=== PATIENT | female | born 1945 | race Caucasian/White ===

== ENCOUNTER → 2019-03-31 | Outpatient (REF) | payer MEDICARE ==
[2019-03-31 16:54] LABS: HEMOGLOBIN 13.9 g/dl (12.0-15.5); MEAN CORPUSCULAR HEMOGLOBIN 31.3 pg (27.0-33.0); MEAN CORPUSCULAR HGB CONC 32.3 g/dl (32.0-36.5); MEAN CORPUSCULAR VOLUME 96.8 fl (80.0-96.0); PLATELET COUNT, AUTOMATED 236 10^3/uL (150-450); RED BLOOD COUNT 4.44 10^6/uL (4.00-5.40); WHITE BLOOD COUNT 6.2 10^3/uL (4.0-10.0)
[2019-03-31 16:58] LABS: BLOOD UREA NITROGEN 14 MG/DL (7-18); CARBON DIOXIDE LEVEL 30 MEQ/L (21-32); CHLORIDE LEVEL 104 MEQ/L (98-107); CREATININE FOR GFR 0.68 MG/DL (0.55-1.30); GLOMERULAR FILTRATION RATE > 60.0 (>39); GLUCOSE, FASTING 113 MG/DL (70-100); POTASSIUM SERUM 4.7 MEQ/L (3.5-5.1); SODIUM LEVEL 140 MEQ/L (136-145)
== END ==
LOC: M SFHCCLAY 09:29
PROVIDERS: ATTEND Family Medicine
DX: E11.65 Type 2 diabetes mellitus with hyperglycemia (principal)

== ENCOUNTER → 2019-04-06 | Outpatient (REF) | payer MEDICARE | LOC: M LAB REF 13:20 | PROVIDERS: ATTEND Podiatrist Foot & Ankle Surgery | DX: L98.9 Disorder of the skin and subcutaneous tissue, unspecified (principal) ==

== ENCOUNTER → 2020-02-08 | Outpatient (REF) | payer MEDICARE, BC ==
[2020-02-08 13:14] LABS: ALT/SGPT 22 U/L (12-78); BILIRUBIN,TOTAL 0.7 MG/DL (0.2-1.0); BLOOD UREA NITROGEN 19 MG/DL (7-18); CARBON DIOXIDE LEVEL 28 MEQ/L (21-32); CHLORIDE LEVEL 103 MEQ/L (98-107); CHOLESTEROL LEVEL 180 MG/DL (<200); GLOMERULAR FILTRATION RATE > 60.0 (>39); GLUCOSE, FASTING 121 MG/DL (70-100); HDL CHOLESTEROL 48 MG/DL (>40); LDL CHOLESTEROL 104 MG/DL (<100); NON-HDL-C 132 MG/DL; POTASSIUM SERUM 4.3 MEQ/L (3.5-5.1); SODIUM LEVEL 139 MEQ/L (136-145); TOTAL PROTEIN 6.7 GM/DL (6.4-8.2); TRIGLYCERIDES LEVEL 138 MG/DL (<150)
[2020-02-08 14:12] LABS: HEMOGLOBIN A1c 6.7 %
== END ==
LOC: M SFHCCLAY 07:53
PROVIDERS: ATTEND Nurse Practitioner Family
DX: E11.65 Type 2 diabetes mellitus with hyperglycemia (principal)

== ENCOUNTER 2020-03-29 10:25 | Observation (INO) | payer MEDICARE, BC ==
[~2020-03-29] VITALS: Ht 157.5 cm; Wt 61.3 kg
--- NOTE | 2020-03-29 11:20 | REPVR ---
PROCEDURE INFORMATION: Exam: XR Chest, 1 View Exam date and time: 03/29/2020 10:56 AM Age: 74 years old Clinical indication: Other: Weakness; Additional info: Chest pain TECHNIQUE: Imaging protocol: XR of the chest Views: 1 view. COMPARISON: CR RIBS BILAT W/O PA CHEST 03/06/2016 3:31 PM FINDINGS: Lungs: Unremarkable. No consolidation. Pleural space: Unremarkable. No pleural effusion. No pneumothorax. Heart/Mediastinum: Unremarkable. No cardiomegaly. Bones/joints: Unremarkable. IMPRESSION: No acute findings. Electronically signed by: Earl Parsons On 03/29/2020 11:20:10 AM
[2020-03-29 11:47] LABS: BASO % 0.4 % (0.0-1.0); EOS % 0.1 % (0.0-3.0); HEMOGLOBIN 13.4 g/dl (12.0-15.5); LYMPH % 11.6 % (24.0-44.0); MEAN CORPUSCULAR HEMOGLOBIN 31.2 pg (27.0-33.0); MEAN CORPUSCULAR HGB CONC 32.7 g/dl (32.0-36.5); MEAN CORPUSCULAR VOLUME 95.3 fl (80.0-96.0); MONO # 0.4 10^3/uL (0.0-0.8); MONO % 4.5 % (0.0-5.0); NEUTROPHILS # 6.8 10^3/uL (1.5-8.5); NEUTROPHILS % 83.2 % (36.0-66.0); PLATELET COUNT, AUTOMATED 202 10^3/uL (150-450); WHITE BLOOD COUNT 8.2 10^3/uL (4.0-10.0)
[2020-03-29 11:57] LABS: INR 0.98; PROTHROMBIN TIME 13.2 SECONDS (11.8-14.0)
[2020-03-29 12:19] LABS: ALBUMIN 3.9 GM/DL (3.2-5.2); ALT/SGPT 27 U/L (12-78); BILIRUBIN,DIRECT < 0.1 MG/DL (0.0-0.2); BILIRUBIN,TOTAL 0.5 MG/DL (0.2-1.0); BLOOD UREA NITROGEN 16 MG/DL (7-18); CALCIUM LEVEL 9.2 MG/DL (8.8-10.2); CARBON DIOXIDE LEVEL 23 MEQ/L (21-32); CHLORIDE LEVEL 108 MEQ/L (98-107); CK-MB VALUE MASS 1.3 NG/ML (<3.6); CPK CREATINE PHOSPHOKINASE 89 U/L (26-192); CREATININE FOR GFR 0.94 MG/DL (0.55-1.30); GLOMERULAR FILTRATION RATE > 60.0 (>39); GLUCOSE, FASTING 162 MG/DL (70-100); LIPASE 51 U/L (73-393); MB/CK RELATIVE INDEX 1.46 (< OR =4); POTASSIUM SERUM 4.6 MEQ/L (3.5-5.1); SODIUM LEVEL 138 MEQ/L (136-145); TOTAL PROTEIN 7.5 GM/DL (6.4-8.2); TROPONIN I < 0.02 NG/ML (< 0.10)
[2020-03-29] MEDS ORDERED: NS 500 ML IV ONE (12:30)
--- NOTE | 2020-03-29 12:51 | REPVR ---
PROCEDURE INFORMATION: Exam: CT Head Without Contrast Exam date and time: 03/29/2020 12:34 PM Age: 74 years old Clinical indication: Pain; Headache; Additional info: Weakness resolved TECHNIQUE: Imaging protocol: Computed tomography of the head without contrast. Radiation optimization: All CT scans at this facility use at least one of these dose optimization techniques: automated exposure control; mA and/or kV adjustment per patient size (includes targeted exams where dose is matched to clinical indication); or iterative reconstruction. COMPARISON: No relevant prior studies available. FINDINGS: Brain: Normal. No hemorrhage. Unremarkable white matter. No mass effect. Ventricles: Normal. No ventriculomegaly. Bones/joints: Unremarkable. No acute fracture. Sinuses: Visualized sinuses are unremarkable. No fluid levels. Mastoid air cells: Visualized mastoid air cells are well aerated. Soft tissues: Unremarkable. IMPRESSION: No acute intracranial abnormality. Electronically signed by: Earl Parsons On 03/29/2020 12:51:39 PM
[2020-03-29] MEDS ORDERED: METF500T13 PO (12:52)
[2020-03-29] MEDS ORDERED: PROL60SO SC (12:52)
[2020-03-29] MEDS ORDERED: LOSA25TA14 PO (12:52)
[2020-03-29] MEDS ORDERED: ROSU40TA4 PO (12:52)
[2020-03-29] MEDS ORDERED: VITA1CHW7 PO (12:54)
[2020-03-29] MEDS ORDERED: HM C500T3 PO (12:54)
[2020-03-29 13:11] LABS: FREE T4 1.03 NG/DL (0.76-1.46); MAGNESIUM LEVEL 1.6 MG/DL (1.8-2.4); PHOSPHORUS LEVEL 2.2 MG/DL (2.5-4.9)
[2020-03-29] MEDS ORDERED: NEUTRA-PHOS 1.5 GM PACKET PO ONE (14:00)
[2020-03-29] MEDS ORDERED: MAGNESIUM OXIDE 400 MG TAB (MAG-OX) PO ONE (14:00)
[2020-03-29] MEDS ORDERED: NITROGLYCERIN 0.4 MG SUBL TABLET SL PRN (14:15)
[2020-03-29] MEDS ORDERED: DENOSUMAB 60MG/1ML SYRINGE (PROLIA) (J0897 PER 1MG) SC SCH (14:15)
--- NOTE | 2020-03-29 15:48 | REPVR ---
PROCEDURE INFORMATION: Exam: MR Head Without Contrast Exam date and time: 03/29/2020 3:12 PM Age: 74 years old Clinical indication: Weakness, extremity; Bilateral; Additional info: Weakness resolved TECHNIQUE: Imaging protocol: MR of the head without contrast. COMPARISON: CT Head without contrast 03/29/2020 12:19 PM FINDINGS: Brain: Moderate central and cortical atrophy and mild to moderate small vessel ischemic disease is noted. There is no intracranial hemorrhage. There is no abnormal intracranial mass. Diffusion-weighted imaging demonstrates no evidence of abnormal signal to suggest an acute ischemic event. Ventricles: Normal. No ventriculomegaly. Bones/joints: Unremarkable. Sinuses: Normal as visualized. No acute sinusitis. Mastoid air cells: Normal as visualized. No mastoid effusion. Orbits: Unremarkable. Soft tissues: Unremarkable. IMPRESSION: Age-related changes. No acute CVA. Electronically signed by: Earl Parsons On 03/29/2020 15:47:49 PM
--- NOTE | 2020-03-29 15:50 | REPVR ---
PROCEDURE INFORMATION: Exam: MR Angiogram Head Without Contrast, Arteries Exam date and time: 03/29/2020 3:12 PM Age: 74 years old Clinical indication: Weakness; Additional info: Weakness resolved TECHNIQUE: Imaging protocol: MR angiogram head without contrast. Exam focused on the arteries. 3D rendering (Not supervised by radiologist): MIP and/or 3D reconstructed images were created by the technologist. COMPARISON: CT Head without contrast 03/29/2020 12:19 PM FINDINGS: ANTERIOR CIRCULATION: Right internal carotid artery: Intracranial segment is patent with no significant stenosis. No aneurysm. Right middle cerebral artery: No occlusion or significant stenosis. No aneurysm. Right anterior cerebral artery: No occlusion or significant stenosis. No aneurysm. Left internal carotid artery: Intracranial segment is patent with no significant stenosis. No aneurysm. Left middle cerebral artery: No occlusion or significant stenosis. No aneurysm. Left anterior cerebral artery: No occlusion or significant stenosis. No aneurysm. POSTERIOR CIRCULATION: Right vertebral artery: Distal right vertebral artery ends at the level of C1 in multiple small branches. Left vertebral artery: No occlusion or significant stenosis. No aneurysm. Basilar artery: No occlusion or significant stenosis. No aneurysm. Right posterior cerebral artery: No occlusion or significant stenosis. No aneurysm. Left posterior cerebral artery: No occlusion or significant stenosis. No aneurysm. IMPRESSION: The right distal vertebral artery ends in branches at the level of C1 however, basilar artery and left vertebral arteries appear unremarkable. There is no abnormality noted with anterior circulation. Electronically signed by: Earl Parsons On 03/29/2020 15:49:48 PM
[2020-03-29 17:28] VITALS: BP 154/82
[2020-03-29] MEDS: metFORMIN (GLUCOPHAGE) 500 MG TAB PO SCH (18:04)
[2020-03-29] MEDS ORDERED: LOSARTAN 25 MG TAB PO SCH (21:00)
[2020-03-29] MEDS ORDERED: ROSUVASTATIN 10 MG TAB (CRESTOR) PO SCH (21:00)
[2020-03-29 22:00] VITALS: BP 153/73
[2020-03-30 06:00] VITALS: BP 139/73
[2020-03-30 07:07] LABS: ALBUMIN 3.7 GM/DL (3.2-5.2); ALT/SGPT 23 U/L (12-78); BILIRUBIN,TOTAL 0.6 MG/DL (0.2-1.0); BLOOD UREA NITROGEN 15 MG/DL (7-18); CALCIUM LEVEL 8.4 MG/DL (8.8-10.2); CARBON DIOXIDE LEVEL 24 MEQ/L (21-32); CHLORIDE LEVEL 110 MEQ/L (98-107); CHOLESTEROL LEVEL 154 MG/DL (<200); CHOLESTEROL RISK RATIO 3.422 (<5); GLOMERULAR FILTRATION RATE > 60.0 (>39); GLUCOSE, FASTING 113 MG/DL (70-100); HDL CHOLESTEROL 45 MG/DL (>40); LDL CHOLESTEROL 92 MG/DL (<100); NON-HDL-C 109 MG/DL; POTASSIUM SERUM 4.1 MEQ/L (3.5-5.1); SODIUM LEVEL 141 MEQ/L (136-145); TOTAL PROTEIN 6.6 GM/DL (6.4-8.2); TRIGLYCERIDES LEVEL 87 MG/DL (<150)
[2020-03-30] MEDS: metFORMIN (GLUCOPHAGE) 500 MG TAB PO SCH (08:06)
[2020-03-30] MEDS ORDERED: ENOXAPARIN 40MG/0.4ML SYRINGE (J1650 PER 10MG) SC SCH (09:00)
[2020-03-30] MEDS ORDERED: ASPIRIN 81 MG CHEW TABLET PO SCH (09:00)
[2020-03-30] MEDS ORDERED: CARVedilol 3.125 MG TAB PO SCH (09:00)
[2020-03-30] MEDS ORDERED: ASPI81TA26 PO (10:59)
[2020-03-30] MEDS ORDERED: CVSTAB PO (11:05)
[2020-03-30] MEDS ORDERED: FLUBLOK(EGG FREE)(QUAD)INFLUENZA VACC 0.5ML SYRINGE 18YRS & OLDER IM ONE (11:15)
[2020-03-30] MEDS ORDERED: CARV3.12 PO (12:04)
[2020-03-30 12:27] VITALS: BP 139/73
--- NOTE | 2020-03-30 22:03 | HPEPDOC ---
[facility] Medical History & Physical Date of Admission Mar 29, 2020 Date of Service: Mar 29, 2020 History and Physical CHIEF COMPLAINT: HISTORY OF PRESENT ILLNESS: Patient is a 74-year-old female with past medical history of diabetes mellitus ([id number]) presented for concerns of diffuse weakness is noticed over the course of the month was more pronounced within the last week. 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 She reports alleviation of symptoms with rest. She also noted episodes of diaphoresis that developed in the same timeframe but does not occur in conju nction with exertion. She reported sweating episodes to be mostly when resting or sitting in her couch. Diaphoretic episodes also resolved within a few minutes. She denied taking any aspirin or nitrate for symptom relief. Denied any noncardiac conditions. PAST MEDICAL HISTORY: 1. HLD 2. DM-II 3. post menopausal PAST SURGICAL HISTORY: 1. 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 REVIEW OF SYSTEMS: [10 point review of systems complete, all negative otherwise stated in HPI] Constitutional: Denies weight loss, change in appetite, or recent trauma Eyes: No visual changes or eye pain Ears, Nose, Throat: Denies nose bleeds, or difficulty swallowing Cardiovascular: Denies chest pain, sweating, or orthopnea Respiratory: Denies cough, wheezing, or shortness of breath GI: Mook nausea, vomiting, abdominal pain, diarrhea or constipation : Denies pain with urination or frequency Musculoskeletal: Denies joint pain or swelling Neuro / Psych: Mook vision or sensory loss Skin: No skin rashes noted All other review of systems negative; otherwise stated in history of present illness HOME MEDICATIONS: Please see below. PHYSICAL EXAMINATION: VITAL SIGNS: see below General: Pleasant, NAD HEENT: NC, AT. EOMI, no scleral icterus. No pharyngeal erythema, mucous membranes moist. Neck: No lymphadenopathy or JVD CV: RRR, Normal S1 and S2. No murmurs, gallops, or rubs. Resp: CTAB with full breath sounds. No wheezes, crackles, or rhonchi. No dullness to percussion. Abdomen: Bowel sounds present. Soft, NT, ND. Extremities: No swelling or edema. LABORATORY DATA: See below. IMAGING: MRI and angio reviewed MICROBIOLOGY: Please see below. ASSESSMEN and PLAN: 1. Generalized weakness worsening over one week duration: mostly with exertion, suggestive of cardiac ideology. Metabolic likely. -Unlikely to be acute coronary syndrome, troponin negative. No EKG signs of acute ischemia. -When order Yosef to assess for any valvular abnormalities. -Intermediate risk for ACS.: Age, diabetes, first-generation family member with Snowden in early age. #Hypomagnesemia -likely secondary to low calcium. Patients reportedly are low calcium due to history of renal stones. #Hypocalcemia actively partakes in low calcium diet for history of renal stones and was advised by her physicians to particular calcium . Since that she modifications she reports significant reduction in renal stones. Okay to continue. Vital Signs Vital Signs Date Time Temp Pulse Resp B/P (MAP) Pulse Ox O2 Delivery O2 Flow Rate FiO2 03/30/20 12:27 90 139/73 03/30/20 06:00 98.3 18 98 Room Air Laboratory Data Labs 24H Laboratory Tests 2 03/29/20 22:45: Troponin I < 0.02 03/30/20 05:19: Anion Gap 7L, Glomerular Filtration Rate > 60.0, Calcium Level 8.4L, Total Bilirubin 0.6, Aspartate Amino Transf (AST/SGOT) 24, Alanine Aminotransferase (ALT/SGPT) 23, Alkaline Phosphatase 82, Total Protein 6.6, Albumin 3.7, Albumin/Globulin Ratio 1.3, Triglycerides Level 87, Total Cholesterol 154, LDL Cholesterol 92, Non-HDL Cholesterol (LDL + VLDL) 109, Total HDL Cholesterol 45, Cholesterol/HDL Ratio 3.422 CBC/BMP Laboratory Tests 03/30/20 05:19 Home Medications Scheduled Aspirin (Aspirin EC) 81 Mg Tablet.dr, 1 TAB PO DAILY for pain Carvedilol (Carvedilol) 3.125 Mg Tablet, 3.125 MG PO BID Cholecalciferol (Vitamin D3) (Vitamin D3) 50 Mcg (2000 Unit) Tab.chew, 50 MCG PO QPM TAKES AT DINNER TIME Cranberry Fruit Extract (Cranberry) 500 Mg Tablet, 500 MG PO QHS Denosumab Injection (Prolia) 60 Mg/1 Ml Syringe, 60 MG SC ASDIRECTED PATIENT RECIEVES INJ EVERY 6 MONTHS Losartan Potassium (Losartan Potassium) 25 Mg Tablet, 25 MG PO QHS Metformin HCl (Metformin HCl) 500 Mg Tablet, 500 MG PO BIDWM Multivit,Calc,Mins/Iron/Folic (Cvs Daily Multiple Tablet) 1 Each Tablet, 1 TAB PO DAILY Rosuvastatin Calcium (Rosuvastatin Calcium) 40 Mg Tablet, 40 MG PO QHS Allergies Coded Allergies: lactose (Verified Allergy, Intermediate, 03/29/20) A-FIB/CHADSVASC A-FIB History Current/History of A-Fib/PAF?: No Current PO Anticoag Therapy: No MERYL GRIFFIN DO Mar 30, 2020 22:03
--- NOTE | 2020-03-30 22:17 | DS.PDOC ---
Discharge Summary General Date of Admission Mar 29, 2020 at 10:26 Date of Discharge 03/30/2020 Discharge Summary PROCEDURES PERFORMED DURING STAY: transthoracic echocardiogram ADMITTING DIAGNOSES: 1. generalized weakness with exertion DISCHARGE DIAGNOSES: 1. sinus tachycardia 2. Hypomagnesemia secondary to hypocalcemia 3. Intermediate risk for major cardiac event COMPLICATIONS/CHIEF COMPLAINT: Weakness. HISTORY OF PRESENT ILLNESS: 74-year-old female presented for concerns of generalized weakness there was more pronounced during the past week. Weakness mostly associated with exertion. diaphoretic episodes within the same time But not associated with the weakness/exertionional event. diaphoretic episodes are self resolving within minutes. No chest pressure or significant shortness of breath. No symptomatic palpitations. HOSPITAL COURSE: neurological source of weakness ruled out an emergency dep artment via MRI of the head and angiogram of head and neck. No significant stenosis. Echocardiogram ordered. Patient was in significant sinus tachycardia. Started on chloride 3.125 on discharge. Appears tachycardia is associated with ambulation (PT assessment) the scene. She's not symptomatically and blood pressure is normotensive. EKGs multiple times were reviewed-sinus rhythm. No concerns of hypoxia. reviewed patient's cardiac respectfulness with who agreed with cardiac stress testing likely exercise outpatient within the next few days. Will suggest reviewing patient sources sinus tachycardia as this is postural induced. Metabolic etiology of sinusitis Ardea possible given hyp ocalcemia and hypomagnesemia but patient has history of renal stone tennis recommended to avoid calcium in her diet for prophylaxis of never let phthisis. Discussed risk benefit of maintaining low calcium levels, plan is to continue low calcium diet. Recommended multivitamin [id number] with mineral supplementation. DISCHARGE MEDICATIONS: Please see below. ALLERGIES: Please see below. PHYSICAL EXAMINATION ON DISCHARGE: VITAL SIGNS: Please see below. General: Pleasant, NAD HEENT: NC, AT. EOMI, no scleral icterus. No pharyngeal erythema, mucous membranes moist. Neck: No lymphadenopathy or JVD CV: tachyxardic; regular rthythm Resp: CTAB with full breath sounds. No wheezes, crackles, or rhonchi. No dullness to percussion. Abdomen: Bowel sounds present. Soft, NT, ND. Extremities: No swelling or edema. LABORATORY DATA: Please see below. IMAGING: echo results pending, to follow-up and review with the patient. PROGNOSIS:stable ACTIVITY: [As tolerated]. DIET: heart healthy, low calcium for history of renal stones DISCHARGE PLAN: cardiac functional workup via exercise stress testing for intermediate risk of acute cardiac event DISPOSITION: 01 Home, Self-Care. DISCHARGE INSTRUCTIONS: 1. follow-up with 's office ITEMS TO FOLLOWUP ON ON OUTPATIENT: -echo results DISCHARGE CONDITION: [Stable]. TIME SPENT ON DISCHARGE: 35 min Vital Signs/I&Os Vital Signs Date Time Temp Pulse Resp B/P (MAP) Pulse Ox O2 Delivery O2 Flow Rate FiO2 03/30/20 12:27 90 139/73 03/30/20 06:00 98.3 18 98 Room Air I&O- Last 24 Hours up to 6 AM 03/30/20 06:00 Intake Total 390 ml Output Total 700 ml Balance -310 ml Laboratory Data Labs 24H Laboratory Tests 2 03/29/20 22:45: Troponin I < 0.02 03/30/20 05:19: Anion Gap 7L, Glomerular Filtration Rate > 60.0, Calcium Level 8.4L, Total Bilirubin 0.6, Aspartate Amino Transf (AST/SGOT) 24, Alanine Aminotransferase (A LT/SGPT) 23, Alkaline Phosphatase 82, Total Protein 6.6, Albumin 3.7, Albumin/Globulin Ratio 1.3, Triglycerides Level 87, Total Cholesterol 154, LDL Cholesterol 92, Non-HDL Cholesterol (LDL + VLDL) 109, Total HDL Cholesterol 45, Cholesterol/HDL Ratio 3.422 CBC/BMP Laboratory Tests 03/30/20 05:19 Discharge Medications Scheduled Aspirin (Aspirin EC) 81 Mg Tablet.dr, 1 TAB PO DAILY for pain Carvedilol (Carvedilol) 3.125 Mg Tablet, 3.125 MG PO BID Cholecalciferol (Vitamin D3) (Vitamin D3) 50 Mcg (2000 Unit) Tab.chew, 50 MCG PO QPM, (Reported) TAKES AT DINNER TIME Cranberry Fruit Extract (Cranberry) 500 Mg Tablet, 500 MG PO QHS, (Reported) Denosumab Injection (Prolia) 60 Mg/1 Ml Syringe, 60 MG SC ASDIRECTED, (Reported) PATIENT RECIEVES INJ EVERY 6 MONTHS Losartan Potassium (Losartan Potassium) 25 Mg Tablet, 25 MG PO QHS, (Reported) Metformin HCl (Metformin HCl) 500 Mg Tablet, 500 MG PO BIDWM, (Reported) Multivit,Calc,Mins/Iron/Folic (Cvs Daily Multiple Tablet) 1 Each Tablet, 1 TAB PO DAILY Rosuvastatin Calcium (Rosuvastatin Calcium) 40 Mg Tablet, 40 MG PO QHS, (Reported) Allergies Coded Allergies: lactose (Verified Allergy, Intermediate, 03/29/20) MERYL GRIFFIN DO Mar 30, 2020 22:17
[2020-03-31] MEDS ORDERED: FLUBLOK(EGG FREE)(QUAD)INFLUENZA VACC 0.5ML SYRINGE 18YRS & OLDER IM ONE (09:00)
--- NOTE | 2020-04-03 12:02 | ECHO ---
DATE OF PROCEDURE: 03/29/2020 Age: 74 Gender: Female PATIENT LOCATION: ED, Room 11. REFERRING PHYSICIAN: Dr. Zhou REASON FOR STUDY: Cardiac arrhythmias. 2D MEASUREMENTS: IVS 1.1 cm LV 3.9 cm LVPW 0.93 cm LA 2.8 cm Aorta 2.4 cm IVC 1.2 cm DOPPLER MEASUREMENT Peak velocity across the aortic valve 1.9 mm/s Peak velocity across the LVOT 1.1 mm/s Peak gradient across the aortic valve 14 mmHg Mean gradient across the aortic valve 8 mmHg Mitral E 1.0 Mitral A 1.7 with a ratio of 0.6 Maximal tricuspid valve velocity 2.6 mm/s 2D COMMENTS: 1. Normal left ventricular size, wall thickness, and normal global left ventricle systolic function. The estimated left ventricular systolic ejection fraction is 65% to 70%. 2. Normal left atrium. Normal right atrium and right ventricle. 3. The atrial septum appeared to be normal without evidence of defect or shunt. 4. Normal aortic root. 5. No pericardial effusion seen. 6. Mildly calcified aortic valve with normal leaflet excursion. Mildly calcified mitral annulus with normal arterial mitral valve leaflet motion. Normal tricuspid valve. The pulmonic valve and proximal pulmonary artery branches were not well visualized. 7. The inferior vena cava was normal in size, central venous pressure is most likely normal. DOPPLER: It detects mild mitral regurgitation, mild tricuspid regurgitation. The calculated pulmonary artery systolic pressures varies between 30 to 40 mmHg. Abnormal relaxation pattern was noted across the mitral valve leaflet, as well as the mitral valve annulus consistent with features of grade 1 left ventricular diastolic dysfunction. IMPRESSION: 1. Normal global left ventricular systolic function. There are some features of grade 1 left ventricular diastolic dysfunction manifested by abnormal relaxation. 2. Aortic valve sclerosis with minimal aortic stenosis, but no aortic regurgitation. 3. Mitral annulus calcification with mild mitral regurgitation. 4. Mild tricuspid regurgitation with mild pulmonary hypertension. MTDD
--- NOTE | 2020-04-10 11:47 | ECGEPIP ---
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
== END 2020-03-30 12:59 | disposition home or self-care (01) ==
LOC: M ED 10:25 → EDBD 10:25 → M ED INP 10:26 → ENRESERVDT 15:46 → ENRESERVTM 15:46 → M MSPAV 17:12
PROVIDERS: ADMIT Internal Medicine; ATTEND Internal Medicine
DX: R00.0 Tachycardia, unspecified (principal); E83.42 Hypomagnesemia; E83.51 Hypocalcemia; E11.9 Type 2 diabetes mellitus without complications; E78.00 Pure hypercholesterolemia, unspecified; I10 Essential (primary) hypertension; Z79.82 Long term (current) use of aspirin; Z79.84 Long term (current) use of oral hypoglycemic drugs; Z79.899 Other long term (current) drug therapy
CPT/HCPCS: 36415; 70450; 70544; 70551; 71045; 80048; 80053; 80061; 80076; 82550; 82553; 83690; 83735; 84100; 84439; 84443; 84484; 85025; 85610; 90682; 93005; 93041; 93306; 94760; 97161; 99284; G0008; G0378

== ENCOUNTER → 2020-04-10 | Outpatient (CLI) | payer MEDICARE, BC ==
[~2020-04-10] MED LIST: ASPI81TA26 PO; CARV3.12 PO; CVSTAB PO; HM C500T3 PO; ISOVUE-370 76% 100ML VIAL As Ordered ONE; LOSA25TA14 PO; METF500T13 PO; PROL60SO SC; ROSU40TA4 PO; VITA1CHW7 PO
--- NOTE | 2020-04-28 15:10 | REP ---
CONTRAST ENHANCED CHEST CT CLINICAL: Dyspnea. TECHNIQUE: Axial contrast enhanced images from the thoracic inlet to the upper abdomen with coronal and sagittal reformations using 75 mL Isovue-370 intravenous contrast material. FINDINGS: The bilateral lung workman are well-aerated, relatively symmetric, and essentially clear. Small focus of scarring at the lingula noted. No consolidation, significant nodule, or mass. No pleural effusion. No pneumothorax. Tracheobronchial tree is patent. No adenopathy. Thoracic aorta, pulmonary vasculature, and heart/pericardium are relatively normal. Moderate atherosclerotic changes to the aorta and coronary arteries are identified. No pericardial effusion. Surrounding musculoskeletal structures are intact. IMPRESSION: No acute mediastinal or pleural parenchymal process appreciated. MTDD
== END ==
LOC: M RAD 08:27
PROVIDERS: ATTEND Nurse Practitioner Family
DX: R06.00 Dyspnea, unspecified (principal); R00.0 Tachycardia, unspecified; I70.0 Atherosclerosis of aorta; I25.10 Atherosclerotic heart disease of native coronary artery without angina pectoris
CPT/HCPCS: 71260; Q9967

== ENCOUNTER → 2020-04-12 | Outpatient (REF) | payer MEDICARE, BC ==
[~2020-04-12] MED LIST changes: -ISOVUE-370 76% 100ML VIAL As Ordered ONE
== END ==
LOC: M LABDRAWC 10:56
PROVIDERS: ATTEND Internal Medicine Cardiovascular Disease
DX: R06.02 Shortness of breath (principal)

== ENCOUNTER → 2021-02-07 | Outpatient (REF) | payer MEDICARE, BC ==
[~2021-02-07] MED LIST changes: -HM C500T3 PO; +HM C500T4 PO
[2021-02-07 11:46] LABS: BASO % 0.6 % (0.0-1.0); EOS # 0.2 10^3/uL (0.0-0.5); EOS % 3.2 % (0.0-3.0); HEMATOCRIT 39.3 % (36.0-47.0); HEMOGLOBIN 12.7 g/dl (12.0-15.5); LYMPH # 1.3 10^3/uL (1.5-5.0); MEAN CORPUSCULAR HEMOGLOBIN 31.5 pg (27.0-33.0); MEAN CORPUSCULAR HGB CONC 32.3 g/dl (32.0-36.5); MEAN CORPUSCULAR VOLUME 97.5 fl (80.0-96.0); MONO # 0.5 10^3/uL (0.0-0.8); MONO % 8.5 % (2.0-8.0); NEUTROPHILS # 4.2 10^3/uL (1.5-8.5); NEUTROPHILS % 66.4 % (36.0-66.0); PLATELET COUNT, AUTOMATED 194 10^3/uL (150-450); RED BLOOD COUNT 4.03 10^6/uL (4.00-5.40); WHITE BLOOD COUNT 6.3 10^3/uL (4.0-10.0)
[2021-02-07 12:50] LABS: HEMOGLOBIN A1c 6.7 %
[2021-02-07 13:19] LABS: ALBUMIN 3.5 GM/DL (3.2-5.2); ALT/SGPT 25 U/L (12-78); BILIRUBIN,TOTAL 0.4 MG/DL (0.2-1.0); BLOOD UREA NITROGEN 14 MG/DL (7-18); CALCIUM LEVEL 8.2 MG/DL (8.8-10.2); CARBON DIOXIDE LEVEL 28 MEQ/L (21-32); CHLORIDE LEVEL 109 MEQ/L (98-107); CHOLESTEROL LEVEL 156 MG/DL (<200); CHOLESTEROL RISK RATIO 3.714 (<5); CREATININE FOR GFR 0.74 MG/DL (0.55-1.30); FREE T4 0.81 NG/DL (0.76-1.46); GLOMERULAR FILTRATION RATE > 60.0 (>39); GLUCOSE, FASTING 107 MG/DL (70-100); HDL CHOLESTEROL 42 MG/DL (>40); LDL CHOLESTEROL 91 MG/DL (<100); NON-HDL-C 114 MG/DL; POTASSIUM SERUM 4.3 MEQ/L (3.5-5.1); SODIUM LEVEL 141 MEQ/L (136-145); TOTAL PROTEIN 6.3 GM/DL (6.4-8.2); TRIGLYCERIDES LEVEL 117 MG/DL (<150)
== END ==
LOC: M SFHCCLAY 07:52
PROVIDERS: ATTEND Nurse Practitioner Family
DX: J30.9 Allergic rhinitis, unspecified (principal); E11.65 Type 2 diabetes mellitus with hyperglycemia; I10 Essential (primary) hypertension; M81.0 Age-related osteoporosis without current pathological fracture; E78.49 Other hyperlipidemia
CPT/HCPCS: 80053; 80061; 83036; 84439; 84443; 85025; G0463

== ENCOUNTER → 2022-02-07 | Outpatient (REF) | payer MEDICARE, BC ==
[~2022-02-07] MED LIST changes: +LOSA25TA13 PO; -LOSA25TA14 PO
[2022-02-07 11:28] LABS: BASO % 0.4 % (0.0-1.0); EOS # 0.2 10^3/uL (0.0-0.5); EOS % 2.2 % (0.0-3.0); HEMATOCRIT 41.1 % (36.0-47.0); HEMOGLOBIN 13.3 g/dl (12.0-15.5); LYMPH # 1.3 10^3/uL (1.5-5.0); LYMPH % 19.4 % (24.0-44.0); MEAN CORPUSCULAR HEMOGLOBIN 31.4 pg (27.0-33.0); MEAN CORPUSCULAR HGB CONC 32.4 g/dl (32.0-36.5); MEAN CORPUSCULAR VOLUME 97.2 fl (80.0-96.0); MONO # 0.7 10^3/uL (0.0-0.8); MONO % 10.2 % (2.0-8.0); NEUTROPHILS # 4.5 10^3/uL (1.5-8.5); NEUTROPHILS % 67.7 % (36.0-66.0); PLATELET COUNT, AUTOMATED 194 10^3/uL (150-450); RED BLOOD COUNT 4.23 10^6/uL (4.00-5.40); WHITE BLOOD COUNT 6.7 10^3/uL (4.0-10.0)
[2022-02-07 12:30] LABS: HEMOGLOBIN A1c 6.8 %
[2022-02-07 12:41] LABS: ALBUMIN 3.7 GM/DL (3.2-5.2); BILIRUBIN,TOTAL 0.4 MG/DL (0.2-1.0); CALCIUM LEVEL 9.6 MG/DL (8.8-10.2); CHOLESTEROL RISK RATIO 3.553 (<5); FREE T4 0.89 NG/DL (0.76-1.46); GLOMERULAR FILTRATION RATE 57.5 (>39); POTASSIUM SERUM 4.1 MEQ/L (3.5-5.1); THYROID STIMULATING HORMONE 6.32 uIU/ML (0.358-3.740); TOTAL PROTEIN 6.4 GM/DL (6.4-8.2)
[2022-02-07 12:45] LABS: TOTAL 25(OH) VITAMIN D 38.4 NG/ML (30.0-100.0)
== END ==
LOC: M SFHCCLAY 07:51
PROVIDERS: ATTEND Nurse Practitioner Family
DX: J30.9 Allergic rhinitis, unspecified (principal); E11.65 Type 2 diabetes mellitus with hyperglycemia; I10 Essential (primary) hypertension; M81.0 Age-related osteoporosis without current pathological fracture; E78.49 Other hyperlipidemia

== ENCOUNTER → 2022-12-02 | Outpatient (REF) | payer MEDICARE, BC ==
[2022-12-02 18:17] LABS: BASO % 0.5 % (0.0-1.0); EOS # 0.2 10^3/uL (0.0-0.5); EOS % 2.4 % (0.0-3.0); HEMATOCRIT 37.3 % (36.0-47.0); HEMOGLOBIN 12.2 g/dl (12.0-15.5); LYMPH # 1.4 10^3/uL (1.5-5.0); LYMPH % 21.3 % (24.0-44.0); MEAN CORPUSCULAR HEMOGLOBIN 31.9 pg (27.0-33.0); MEAN CORPUSCULAR HGB CONC 32.7 g/dl (32.0-36.5); MEAN CORPUSCULAR VOLUME 97.4 fl (80.0-96.0); MONO # 0.5 10^3/uL (0.0-0.8); MONO % 8.2 % (2.0-8.0); NEUTROPHILS # 4.3 10^3/uL (1.5-8.5); NEUTROPHILS % 67.3 % (36.0-66.0); PLATELET COUNT, AUTOMATED 204 10^3/uL (150-450); RED BLOOD COUNT 3.83 10^6/uL (4.00-5.40); WHITE BLOOD COUNT 6.3 10^3/uL (4.0-10.0)
[2022-12-02 18:31] LABS: HEMOGLOBIN A1c 7.1 % (4.0-6.0)
[2022-12-02 18:41] LABS: ALBUMIN 3.5 G/DL (3.2-5.2); ALKALINE PHOSPHATASE 54 U/L (46-116); ALT/SGPT 19 U/L (7.0-40); AST/SGOT 23 U/L (<34); BILIRUBIN,TOTAL 0.4 MG/DL (0.3-1.2); BLOOD UREA NITROGEN 12 MG/DL (9-23); CALCIUM LEVEL 8.9 MG/DL (8.3-10.6); CARBON DIOXIDE LEVEL 30 MMOL/L (20-31); CHLORIDE LEVEL 103 MMOL/L (98-107); CHOLESTEROL LEVEL 142 MG/DL (<200); CHOLESTEROL RISK RATIO 2.93 (<5); CREATININE FOR GFR 0.87 MG/DL (0.55-1.30); GLOMERULAR FILTRATION RATE > 60.0 (>39); GLUCOSE, FASTING 184 MG/DL (74-106); HDL CHOLESTEROL 48.3 MG/DL (>40); LDL CHOLESTEROL 74.5 MG/DL (<100); MAGNESIUM LEVEL 1.2 MG/DL (1.8-2.4); NON-HDL-C 93.7 MG/DL; POTASSIUM SERUM 4.5 MMOL/L (3.5-5.1); SODIUM LEVEL 138 MMOL/L (136-145); TOTAL PROTEIN 5.9 G/DL (5.7-8.2); TRIGLYCERIDES LEVEL 96 MG/DL (<150)
[2022-12-02 18:45] LABS: THYROID STIMULATING HORMONE 2.719 uIU/ML (0.55-4.78); TOTAL 25(OH) VITAMIN D 79.6 NG/ML (20.0-100.0)
[2022-12-02 18:46] LABS: FREE T4 1.02 NG/DL (0.89-1.76)
== END ==
LOC: M SFHCCLAY 10:49
PROVIDERS: ATTEND Nurse Practitioner Family
DX: E11.65 Type 2 diabetes mellitus with hyperglycemia (principal); I10 Essential (primary) hypertension; E78.49 Other hyperlipidemia; R79.89 Other specified abnormal findings of blood chemistry; M81.0 Age-related osteoporosis without current pathological fracture; E83.42 Hypomagnesemia; E86.0 Dehydration

== ENCOUNTER 2022-12-05 10:11 | Outpatient (CLI) | payer MEDICARE, BC ==
[2022-12-05] MEDS: MAG SULF 1GM/100ML (MAG RUN) X 2 DOSES (2GM TOTAL) IV SCH ×4 (10:27→11:36)
[2022-12-05 10:41] VITALS: BP 113/61
== END 2022-12-05 13:20 | disposition home or self-care (01) ==
LOC: M INFU 10:11
PROVIDERS: ATTEND Nurse Practitioner Family
DX: E83.42 Hypomagnesemia (principal)
CPT/HCPCS: 36592; 83735; 96365; 96366; J3475

== ENCOUNTER → 2022-12-12 | Outpatient (REF) | payer MEDICARE, BC | LOC: M SFHCCLAY 08:35 | PROVIDERS: ATTEND Nurse Practitioner Family | DX: E83.42 Hypomagnesemia (principal) ==

== ENCOUNTER 2022-12-16 09:00 | Outpatient (CLI) | payer MEDICARE, BC ==
[~2022-12-16] VITALS: Ht 157.5 cm; Wt 62.3 kg
[2022-12-16 09:00] VITALS: BP 146/76
[2022-12-16] MEDS: MAG SULF 1GM/100ML (MAG RUN) IV SCH ×4 (09:09→10:18)
[2022-12-16 11:24] VITALS: BP 184/92
== END 2022-12-16 11:25 | disposition home or self-care (01) ==
LOC: M INFU 09:00
PROVIDERS: ATTEND Nurse Practitioner Family
DX: E83.42 Hypomagnesemia (principal)
CPT/HCPCS: 96365; 96366; J3475

== ENCOUNTER → 2022-12-19 | Outpatient (REF) | payer MEDICARE, BC ==
[2022-12-19 12:37] LABS: ALBUMIN 3.6 G/DL (3.2-5.2); ALKALINE PHOSPHATASE 40 U/L (46-116); ALT/SGPT 17 U/L (7.0-40); AST/SGOT 22 U/L (<34); BILIRUBIN,TOTAL 0.6 MG/DL (0.3-1.2); BLOOD UREA NITROGEN 14 MG/DL (9-23); CALCIUM LEVEL 8.9 MG/DL (8.3-10.6); CARBON DIOXIDE LEVEL 32 MMOL/L (20-31); CHLORIDE LEVEL 103 MMOL/L (98-107); CREATININE FOR GFR 0.85 MG/DL (0.55-1.30); GLOMERULAR FILTRATION RATE > 60.0 (>39); GLUCOSE, FASTING 120 MG/DL (74-106); MAGNESIUM LEVEL 1.6 MG/DL (1.8-2.4); POTASSIUM SERUM 4.6 MMOL/L (3.5-5.1); SODIUM LEVEL 141 MMOL/L (136-145); TOTAL PROTEIN 5.9 G/DL (5.7-8.2)
== END ==
LOC: M SFHCCLAY 08:31
PROVIDERS: ATTEND Nurse Practitioner Family
DX: E83.42 Hypomagnesemia (principal)

== ENCOUNTER → 2023-01-02 | Outpatient (REF) | payer MEDICARE, BC | LOC: M SFHCCLAY 08:12 | PROVIDERS: ATTEND Nurse Practitioner Family | DX: E83.42 Hypomagnesemia (principal) ==

== ENCOUNTER → 2023-01-16 | Outpatient (REF) | payer MEDICARE, BC ==
[2023-01-16 11:52] LABS: BLOOD UREA NITROGEN 15 MG/DL (9-23); CALCIUM LEVEL 9.2 MG/DL (8.3-10.6); CARBON DIOXIDE LEVEL 30 MMOL/L (20-31); CHLORIDE LEVEL 104 MMOL/L (98-107); CREATININE FOR GFR 0.87 MG/DL (0.55-1.30); GLOMERULAR FILTRATION RATE > 60.0 (>39); GLUCOSE, FASTING 120 MG/DL (74-106); MAGNESIUM LEVEL 1.2 MG/DL (1.8-2.4); POTASSIUM SERUM 4.3 MMOL/L (3.5-5.1); SODIUM LEVEL 141 MMOL/L (136-145)
== END ==
LOC: M SFHCCLAY 08:46
PROVIDERS: ATTEND Nurse Practitioner Family
DX: E83.42 Hypomagnesemia (principal)

== ENCOUNTER 2023-02-03 13:00 | Outpatient (CLI) | payer MEDICARE, BC ==
[2023-02-03 13:00] VITALS: BP 148/73; O2SAT 99
[2023-02-03] MEDS: MAG SULF 1GM/100ML (MAG RUN) IV SCH ×4 (13:05→14:01)
== END 2023-02-03 15:15 ==
LOC: M INFU 13:00
PROVIDERS: ATTEND Nurse Practitioner Family
DX: E83.42 Hypomagnesemia (principal)
CPT/HCPCS: 96365; 96366; J3475

== ENCOUNTER → 2023-02-25 | Outpatient (REF) | payer MEDICARE, BC | LOC: M SFHCCLAY 10:26 | PROVIDERS: ATTEND Nurse Practitioner Family | DX: E83.42 Hypomagnesemia (principal) ==

== ENCOUNTER 2023-02-28 06:39 | Outpatient (CLI) | payer MEDICARE, BC ==
[2023-02-28 06:50] VITALS: BP 155/72; O2SAT 99
[2023-02-28] MEDS: MAG SULF 1GM/100ML (MAG RUN) IV SCH ×4 (07:10→08:13)
[2023-02-28 09:25] VITALS: BP 148/73; O2SAT 97
== END 2023-02-28 09:30 | disposition home or self-care (01) ==
LOC: M INFU 06:39
PROVIDERS: ATTEND Nurse Practitioner Family
DX: E83.42 Hypomagnesemia (principal)
CPT/HCPCS: 96365; 96366; J3475

== ENCOUNTER 2023-03-07 07:00 | Outpatient (CLI) | payer MEDICARE, BC ==
[~2023-03-07] VITALS: Ht 157.5 cm; Wt 65.0 kg
[2023-03-07 07:09] VITALS: BP 158/80; O2SAT 98
[2023-03-07] MEDS: MAG SULF 1GM/100ML (MAG RUN) IV SCH ×4 (07:16→08:17)
== END 2023-03-07 09:35 ==
LOC: M INFU 07:00
PROVIDERS: ATTEND Nurse Practitioner Family
DX: E83.42 Hypomagnesemia (principal)
CPT/HCPCS: 96365; 96366; J3475

== ENCOUNTER 2023-03-14 08:50 | Outpatient (CLI) | payer MEDICARE, BC ==
[~2023-03-14] VITALS: Ht 157.5 cm; Wt 65.0 kg
[2023-03-14 08:50] VITALS: BP 152/69; O2SAT 98
[2023-03-14] MEDS: MAG SULF 1GM/100ML (MAG RUN) IV SCH ×4 (09:07→09:59)
[2023-03-14 11:15] VITALS: BP 140/75; O2SAT 97
== END 2023-03-14 11:15 | disposition home or self-care (01) ==
LOC: M INFU 08:50
PROVIDERS: ATTEND Nurse Practitioner Family
DX: E83.42 Hypomagnesemia (principal)
CPT/HCPCS: 96365; 96366; J3475

== ENCOUNTER → 2023-03-17 | Outpatient (REF) | payer MEDICARE, BC | LOC: M SFHCCLAY 11:30 | PROVIDERS: ATTEND Nurse Practitioner Family | DX: E83.42 Hypomagnesemia (principal) ==

== ENCOUNTER 2023-03-21 09:10 | Outpatient (CLI) | payer MEDICARE, BC ==
[~2023-03-21] VITALS: Ht 157.5 cm; Wt 63.6 kg
[2023-03-21 09:10] VITALS: BP 139/68; O2SAT 97
[2023-03-21] MEDS: MAG SULF 1GM/100ML (MAG RUN) IV SCH ×4 (09:33→10:31)
[2023-03-21 11:33] VITALS: BP 130/75; O2SAT 97
== END 2023-03-21 11:40 | disposition home or self-care (01) ==
LOC: M INFU 09:10
PROVIDERS: ATTEND Nurse Practitioner Family
DX: E83.42 Hypomagnesemia (principal)
CPT/HCPCS: 96365; 96366; J3475

== ENCOUNTER → 2023-03-27 | Outpatient (REF) | payer MEDICARE, BC ==
[2023-03-27 13:17] LABS: MAGNESIUM, URINE 3.5 MG/DL; URINE MAGNESIUM 24HR 52.5 MG/24HR (24-255)
== END ==
LOC: M SFHCCLAY 11:34
PROVIDERS: ATTEND Nurse Practitioner Family
DX: E83.42 Hypomagnesemia (principal)

== ENCOUNTER → 2023-04-08 | Outpatient (REF) | payer MEDICARE, BC ==
[2023-04-08 20:17] LABS: HEMOGLOBIN A1c 7.7 % (4.0-6.0)
[2023-04-08 20:49] LABS: ALBUMIN 3.5 G/DL (3.2-5.2); ALKALINE PHOSPHATASE 44 U/L (46-116); ALT/SGPT 23 U/L (7.0-40); AST/SGOT 15 U/L (<34); BILIRUBIN,TOTAL 0.6 MG/DL (0.3-1.2); BLOOD UREA NITROGEN 15 MG/DL (9-23); CALCIUM LEVEL 9.1 MG/DL (8.3-10.6); CARBON DIOXIDE LEVEL 32 MMOL/L (20-31); CHLORIDE LEVEL 103 MMOL/L (98-107); CREATININE FOR GFR 0.77 MG/DL (0.55-1.30); GLOMERULAR FILTRATION RATE > 60.0 (>39); GLUCOSE, FASTING 191 MG/DL (74-106); POTASSIUM SERUM 4.1 MMOL/L (3.5-5.1); SODIUM LEVEL 142 MMOL/L (136-145)
[2023-04-08 21:41] LABS: MAGNESIUM LEVEL 1.5 MG/DL (1.8-2.4)
== END ==
LOC: M SFHCCLAY 09:46
PROVIDERS: ATTEND Nurse Practitioner Family
DX: E11.65 Type 2 diabetes mellitus with hyperglycemia (principal); E83.42 Hypomagnesemia

== ENCOUNTER → 2024-01-08 | Outpatient (REF) | payer MEDICARE, BC ==
[~2024-01-08] MED LIST changes: -ROSU40TA4 PO; +ROSU40TA63 PO
[2024-01-08 19:19] LABS: BASO % 0.6 % (0.0-1.0); EOS # 0.2 10^3/uL (0.0-0.5); EOS % 3.2 % (0.0-3.0); HEMATOCRIT 39.1 % (36.0-47.0); HEMOGLOBIN 12.7 g/dl (12.0-15.5); LYMPH # 1.3 10^3/uL (1.5-5.0); LYMPH % 19.3 % (24.0-44.0); MEAN CORPUSCULAR HEMOGLOBIN 32.4 pg (27.0-33.0); MEAN CORPUSCULAR HGB CONC 32.5 g/dl (32.0-36.5); MEAN CORPUSCULAR VOLUME 99.7 fl (80.0-96.0); MONO # 0.8 10^3/uL (0.0-0.8); MONO % 12.4 % (2.0-8.0); NEUTROPHILS # 4.4 10^3/uL (1.5-8.5); NEUTROPHILS % 64.1 % (36.0-66.0); PLATELET COUNT, AUTOMATED 241 10^3/uL (150-450); RED BLOOD COUNT 3.92 10^6/uL (4.00-5.40); WHITE BLOOD COUNT 6.8 10^3/uL (4.0-10.0)
[2024-01-08 19:32] LABS: ALBUMIN 3.2 G/DL (3.2-5.2); ALKALINE PHOSPHATASE 52 U/L (46-116); ALT/SGPT 21 U/L (7.0-40); AST/SGOT 18 U/L (<34); BILIRUBIN,TOTAL 0.5 MG/DL (0.3-1.2); BLOOD UREA NITROGEN 18 MG/DL (9-23); CALCIUM LEVEL 8.4 MG/DL (8.3-10.6); CARBON DIOXIDE LEVEL 30 MMOL/L (20-31); CHLORIDE LEVEL 104 MMOL/L (98-107); CREATININE FOR GFR 0.82 MG/DL (0.55-1.30); GLOMERULAR FILTRATION RATE > 60.0 (>39); GLUCOSE, FASTING 140 MG/DL (74-106); MAGNESIUM LEVEL 1.4 MG/DL (1.8-2.4); POTASSIUM SERUM 5.4 MMOL/L (3.5-5.1); SODIUM LEVEL 138 MMOL/L (136-145); TOTAL PROTEIN 5.8 G/DL (5.7-8.2)
[2024-01-08 19:33] LABS: HEMOGLOBIN A1c 7.3 % (4.0-6.0)
== END ==
LOC: M SFHCCLAY 08:52
PROVIDERS: ATTEND Nurse Practitioner Family
DX: E83.42 Hypomagnesemia (principal); E11.65 Type 2 diabetes mellitus with hyperglycemia; R19.7 Diarrhea, unspecified; R06.09 Other forms of dyspnea

== ENCOUNTER → 2024-01-08 | Outpatient (CLI) | payer MEDICARE, BC | LOC: M CLY 09:20 | PROVIDERS: ATTEND Nurse Practitioner Family | DX: E83.42 Hypomagnesemia (principal); E11.65 Type 2 diabetes mellitus with hyperglycemia; R19.7 Diarrhea, unspecified; R06.09 Other forms of dyspnea ==

== ENCOUNTER → 2024-01-27 | Outpatient (CLI) | payer MEDICARE, BC | LOC: M PLAIMG 08:50 | PROVIDERS: ATTEND Nurse Practitioner Family | DX: R06.09 Other forms of dyspnea (principal); I27.20 Pulmonary hypertension, unspecified; I08.3 Combined rheumatic disorders of mitral, aortic and tricuspid valves ==

== ENCOUNTER → 2024-02-10 | Outpatient (CLI) | payer MEDICARE, BC | LOC: M RAD 09:20 | PROVIDERS: ATTEND Nurse Practitioner Family | DX: I65.23 Occlusion and stenosis of bilateral carotid arteries (principal) ==

== ENCOUNTER → 2024-03-01 | Outpatient (REF) | payer MEDICARE, BC | LOC: M SFHCCLAY 07:54 | PROVIDERS: ATTEND Nurse Practitioner Family | DX: R19.7 Diarrhea, unspecified (principal) ==

== ENCOUNTER → 2025-01-26 | Outpatient (REF) | payer MEDICARE, BC ==
[~2025-01-26] MED LIST changes: +DENO60SY2 SC; -PROL60SO SC; -ROSU40TA63 PO; +ROSU40TA81 PO
[2025-01-26 18:25] LABS: BASO # 0.0 10^3/uL (0.0-0.2); BASO % 0.3 % (0.0-1.0); EOS # 0.1 10^3/uL (0.0-0.5); EOS % 1.0 % (0.0-3.0); LYMPH # 2.1 10^3/uL (1.5-5.0); LYMPH % 26.2 % (24.0-44.0); MONO # 0.7 10^3/uL (0.0-0.8); MONO % 8.5 % (2.0-8.0); NEUTROPHILS # 5.0 10^3/uL (1.5-8.5); NEUTROPHILS % 63.6 % (36.0-66.0); PLATELET COUNT, AUTOMATED 139 10^3/uL (150-450)
[2025-01-26 18:27] LABS: ALT/SGPT 23 U/L (7.0-40); AST/SGOT 32 U/L (<34); C REACTIVE PROTEIN QUANTITATIV < 0.50 MG/DL (<1.0); CALCIUM LEVEL 8.6 MG/DL (8.3-10.6); CARBON DIOXIDE LEVEL 24 MMOL/L (20-31); CHLORIDE LEVEL 106 MMOL/L (98-107); CREATININE FOR GFR 1.22 MG/DL (0.55-1.30); GLOMERULAR FILTRATION RATE 45.4 (>39); POTASSIUM SERUM 4.4 MMOL/L (3.5-5.1); SODIUM LEVEL 141 MMOL/L (136-145)
[2025-01-26 18:35] LABS: ERYTHROCYTE SEDIMENTATION RATE 4 mm/hr (0-30)
[2025-02-01 02:39] LABS: UNITSIGA FOR GLIADIN IGA < 1.0 U/mL (<15.0); UNITSIGG FOR GLIADIN IGG < 1.0 U/mL (<15.0)
[2025-02-03 18:05] LABS: CALPROTECTIN STOOL 103 mcg/g (<50)
[2025-02-04 01:39] LABS: PANCREATIC ELASTASE STOOL 200 mcg/g (>200)
== END ==
LOC: M LABDRWCV 16:59
PROVIDERS: ATTEND Physician Assistant Medical
DX: K52.832 Lymphocytic colitis (principal); R19.7 Diarrhea, unspecified

== ENCOUNTER → 2025-02-03 | Outpatient (CLI) | payer MEDICARE, BC ==
[~2025-02-03] MED LIST changes: +ISOVUE-370 76% 100 ML VIAL As Ordered ONE
== END ==
LOC: M RAD 15:24
PROVIDERS: ATTEND Physician Assistant Medical
DX: R63.4 Abnormal weight loss (principal); K80.20 Calculus of gallbladder without cholecystitis without obstruction; N20.0 Calculus of kidney; K57.30 Diverticulosis of large intestine without perforation or abscess without bleeding
CPT/HCPCS: 71260; 74177; Q9967